=== PATIENT | female | born 1980 | race Caucasian/White ===

== ENCOUNTER → 2018-06-14 | Outpatient (CLI) | payer OTHER ==
--- NOTE | 2018-06-16 14:28 | MM ---
Reason for exam: screening (asymptomatic). Last mammogram was performed 5 years and 1 month ago. History: Patient is nulliparous. Took hormonal contraceptives for 4 years. MG Screening Mammo w CAD Bilateral CC and MLO view(s) were taken. Prior study comparison: May 10, 2013, bilateral digital screening mammo w/CAD. March 09, 2001, bilateral diagnostic mammogram. The breast tissue is heterogeneously dense. This may lower the sensitivity of mammography. No discrete abnormality. No significant changes when compared with prior studies. ASSESSMENT: Negative, BI-RAD 1 RECOMMENDATION: Routine screening mammogram of both breasts in 1 year.
== END ==
LOC: RADMAMWWP 12:26
PROVIDERS: ATTEND Obstetrics & Gynecology
DX: Z12.31 Encounter for screening mammogram for malignant neoplasm of breast (principal)
CPT/HCPCS: 77067

== ENCOUNTER → 2018-06-15 | Outpatient (CLI) | payer OTHER ==
[2018-06-15 11:11] LABS: HCT 45.5 % (34.0-46.0); HGB 14.6 gm/dL (11.4-16.0); MCHC 32.1 g/dL (31.0-37.0); MCV 87.4 fL (80.0-100.0); Platelet Count 317 k/uL (150-450); WBC 8.6 k/uL (3.8-10.6)
[2018-06-15 16:22] LABS: Albumin 4.2 g/dL (3.80-4.90); Calcium 9.4 mg/dL (8.7-10.3); Globulin 2.1 g/dL (1.6-3.3); Potassium 5.1 mmol/L (3.5-5.5); Total Bilirubin 0.5 mg/dL (0.2-1.2); Total Protein 6.3 g/dL (6.2-8.2)
== END | disposition home or self-care (01) ==
LOC: LABWHC1 10:24
PROVIDERS: ATTEND Nurse Practitioner Family
DX: I10 Essential (primary) hypertension (principal); K58.0 Irritable bowel syndrome with diarrhea; Z13.29 Encounter for screening for other suspected endocrine disorder; Z13.0 Encounter for screening for diseases of the blood and blood-forming organs and certain disorders involving the immune mechanism
CPT/HCPCS: 36415; 80053; 80061; 84443; 85027

== ENCOUNTER → 2019-07-12 | Outpatient (CLI) | payer OTHER ==
--- NOTE | 2019-07-12 15:56 | US ---
EXAMINATION TYPE: US kidneys/renal and bladder DATE OF EXAM: 07/12/2019 COMPARISON: 11/15/2012 CLINICAL HISTORY: N28.1 Cyst of kidney,Z79.1 [facility] (current) use of nonste. patient states cyst f rom recent testing at other facility EXAM MEASUREMENTS: Right Kidney: 11.0 x 4.4 x 4.5 cm Left Kidney: 10.2 x 4.3 x 5.4 cm Right Kidney: Mild right hydronephrosis. This appears slightly worse than the prior of 2012. Left Kidney: 1.0cm septated cyst seen Bladder: wnl Bilateral Jets seen: yes No nephrolithiasis is seen. The urinary bladder is anechoic. Bilateral ureteral jets are seen. IMPRESSION: 1. Slight worsening of the mild right hydronephrosis in comparison to the exam of 11/15/2012. 2. New left cortical septated cyst in comparison to 2013. Six-month follow-up ultrasound is recommend ed given the minimal internal complexity.
== END | disposition home or self-care (01) ==
LOC: RADUSWWP 15:15
PROVIDERS: ATTEND Family Medicine
DX: N13.30 Unspecified hydronephrosis (principal); N28.1 Cyst of kidney, acquired; Z79.1 Long term (current) use of non-steroidal anti-inflammatories (NSAID)
CPT/HCPCS: 76770

== ENCOUNTER → 2020-05-05 | Outpatient (CLI) | payer OTHER ==
[2020-05-05 15:35] LABS: Basophils # (A) 0.1 k/uL (0-0.2); Basophils % (A) 1 %; Eosinophils % (A) 0 %; HCT 40.1 % (34.0-46.0); HGB 13.8 gm/dL (11.4-16.0); Lymphocytes % (A) 21 %; MCHC 34.4 g/dL (31.0-37.0); MCV 90.2 fL (80.0-100.0); Mean Platelet Volume 6.8; Monocytes # (A) 0.4 k/uL (0-1.0); Monocytes % (A) 5 %; Neutrophils # (A) 6.9 k/uL (1.3-7.7); Neutrophils % (A) 72 %; Platelet Count 318 k/uL (150-450); RBC 4.45 m/uL (3.80-5.40); RDW 13.6 % (11.5-15.5); WBC 9.5 k/uL (3.8-10.6)
== END | disposition home or self-care (01) ==
LOC: LABWHC1 14:37
PROVIDERS: ATTEND Family Medicine
DX: R07.0 Pain in throat (principal)
CPT/HCPCS: 36415; 85025; 86308

== ENCOUNTER → 2020-06-11 | Outpatient (CLI) | payer OTHER ==
--- NOTE | 2020-06-12 08:08 | US ---
EXAMINATION TYPE: US kidneys/renal and bladder DATE OF EXAM: 06/11/2020 COMPARISON: 07/12/2019 CLINICAL HISTORY: 40-year-old female N28.1 CYST OF KIDNEY. Known left renal cyst, no symptoms TECHNIQUE: Multiple sonographic images of the kidneys and bladder are obtained. FINDINGS: EXAM MEASUREMENTS: Right Kidney: 10.8 x 4.6 x 4.4 cm with mild pelviectasis. No brant calyceal dilatation to suggest fr ank hydronephrosis. Left Kidney: 10.1 x 4.4 x 5.3 cm without hydronephrosis. There is a septated lower pole cortical cyst measuring 1.4 cm. Previously, this measured 1.0 cm. Bladder: wnl IMPRESSION: 1. Mild right-sided pelviectasis. The overall mild hydronephrosis seen on 07/12/2019 shows improvement . 2. Septated lower pole cortical cyst on the left currently measures 1.4 cm versus 1.0 cm on 07/12/2019 . Given the indolent behavior, recommend continued annual surveillance.
== END | disposition home or self-care (01) ==
LOC: RADUSWWP 15:46
PROVIDERS: ATTEND Family Medicine
DX: N28.1 Cyst of kidney, acquired (principal); N13.30 Unspecified hydronephrosis
CPT/HCPCS: 76770

== ENCOUNTER → 2020-07-16 | Outpatient (CLI) | payer OTHER ==
--- NOTE | 2020-07-20 08:59 | MM ---
Reason for exam: screening (asymptomatic). Last mammogram was performed 2 years and 1 month ago. History: Took hormonal contraceptives for 4 years. Physical Findings: A clinical breast exam by your physician is recommended on an annual basis and results should be correlated with mammographic findings. MG 3D Screening Mammo W/Cad Bilateral CC and MLO view(s) were taken. Prior study comparison: June 14, 2018, bilateral MG screening mammo w CAD. May 10, 2013, bilateral digital screening mammo w/CAD. The breast tissue is heterogeneously dense. This may lower the sensitivity of mammography. No significant changes when compared with prior studies. ASSESSMENT: Benign, BI-RAD 2 RECOMMENDATION: Routine screening mammogram of both breasts in 1 year.
== END | disposition home or self-care (01) ==
LOC: RADMAMWWP 14:38
PROVIDERS: ATTEND Obstetrics & Gynecology
DX: Z12.31 Encounter for screening mammogram for malignant neoplasm of breast (principal)
CPT/HCPCS: 77063; 77067

== ENCOUNTER → 2022-02-16 | Outpatient (CLI) | payer BC ==
--- NOTE | 2022-02-17 09:07 | MM ---
Reason for Exam: Screening (asymptomatic). Last mammogram was performed 1 year(s) and 7 month(s) ago. Patient History: Menarche at age 14. First Full-Term at age 21. Patient used Hormonal Contraceptives for 4 years. Last menstrual period: Risk Values: Maggie 5 year model risk: 0.6%. NCI Lifetime model risk: 8.0%. Prior Study Comparison: 05/10/2013 Bilateral Screening Mammogram, [facility]. 06/14/2018 Bilateral Screening Mammogram, [facility]. 07/16/2020 Bilateral Screening Mammogram, [facility]. Tissue Density: The breast tissue is heterogeneously dense. This may lower the sensitivity of mammography. Findings: Analyzed By CAD. There is no suspicious group of microcalcifications or new suspicious mass in either breast. Overall Assessment: Negative, BI-RAD 1 Management: Screening Mammogram of both breasts in 1 year. A clinical breast exam by your physician is recommended on an annual basis and results should be correlated with mammographic findings. [facility] will attempt to contact patient to return for supplemental views and ultrasound if indicated. Electronically signed and approved by: Jeremy Riggs DO
== END | disposition home or self-care (01) ==
LOC: RADMAMWWP 16:04
PROVIDERS: ATTEND Obstetrics & Gynecology
DX: Z12.31 Encounter for screening mammogram for malignant neoplasm of breast (principal)
CPT/HCPCS: 77063; 77067

== ENCOUNTER → 2022-03-01 | Outpatient (CLI) | payer BC ==
[2022-03-02 01:36] LABS: Basophils # (A) 0.07 X 10*3/uL (0.00-0.10); Basophils % (A) 0.6 %; Eosinophils # (A) 0.07 X 10*3/uL (0.04-0.35); Eosinophils % (A) 0.6 %; HCT 43.3 % (37.2-46.3); HGB 13.7 g/dL (12.0-15.0); Immature Grans, Automated 0.4 %; Lymphocytes # (A) 2.57 X 10*3/uL (0.90-5.00); Lymphocytes % (A) 21.7 %; MCH 28.8 pg (27.0-32.0); MCHC 31.6 g/dL (32.0-37.0); MCV 91.2 fL (80.0-97.0); Mean Platelet Volume 10.2 fL (9.5-12.2); Monocytes # (A) 0.72 X 10*3/uL (0.20-1.00); Monocytes % (A) 6.1 %; NRBC Per 100 WBC 0 /100 WBCS (0.0-0.0); Neutrophils # (A) 8.36 X 10*3/uL (1.80-7.70); Neutrophils % (A) 70.6 %; Platelet Count 283 X 10*3/uL (140-440); RBC 4.75 X 10*6/uL (4.10-5.20); RDW 13.1 % (11.5-14.5); WBC 11.84 X 10*3/uL (4.50-10.00)
[2022-03-02 02:07] LABS: ALT 10 U/L (8-44); AST 14 U/L (13-35); African American GFR (CKD) 122.2 (60.0-200.0); Albumin 4.3 g/dL (3.8-4.9); Albumin/Globulin Ratio 2.16 (1.60-3.17); Alkaline Phosphatase 75 U/L (41-126); BUN/Creat Ratio 13.87 Ratio (12.00-20.00); Blood Urea Nitrogen 9.7 mg/dL (9.0-27.0); C Reactive Protein <0.30 mg/dL (0.00-0.80); Calcium 8.9 mg/dL (8.7-10.3); Carbon Dioxide 29.8 mmol/L (20.0-27.5); Chloride 103 mmol/L (96-109); Glucose 121 mg/dL (70-110); Non-African American GFR(CKD) 105.5 (60.0-200.0); Potassium 3.9 mmol/L (3.5-5.5); Sodium 140 mmol/L (135-145); Total Bilirubin <0.15 mg/dL (0.30-1.20); Total Protein 6.3 g/dL (6.2-8.2)
== END | disposition home or self-care (01) ==
LOC: LABWHC1 14:56
PROVIDERS: ATTEND Internal Medicine Gastroenterology
DX: R19.7 Diarrhea, unspecified (principal)
CPT/HCPCS: 36415; 80053; 82784; 83516; 84439; 84443; 85025; 86140

== ENCOUNTER → 2022-03-08 | Outpatient (CLI) | payer BC ==
--- NOTE | 2022-03-08 14:03 | US ---
EXAMINATION TYPE: US pelvic complete DATE OF EXAM: 03/08/2022 COMPARISON: Pelvic ultrasound 11/14/2012 CLINICAL HISTORY: PELVIC MASS R19.09. Patient states during internal pelvic exam, doctor felt a right mass, ovarian cyst vs fibroid. History ablation. TECHNIQUE: Transabdominal (TA). Transabdominal sonographic images of the pelvis were acquired. Date of LMP: Unknown, EXAM MEASUREMENTS: Uterus: 9.3 x 5.6 x 3.1 cm Endometrial Stripe: 0.4 cm Right Ovary: 3.4 x 1.8 x 1.3 cm Left Ovary: 3.5 x 2.2 x 2.0 cm Grayscale and color Doppler imaging performed of the ovaries, there is color flow bilaterally, associ ated follicles 1. Uterus: Anteverted Left hypoechoic lesion = 2.3 x 2.5 x 2.4 cm 2. Endometrium: limited visualization due to ablation 3. Right Ovary: follicles seen 4. Left Ovary: follicles seen 5. Bilateral Adnexa: wnl 6. Posterior cul-de-sac: no free fluid Cervix- nabothian cyst IMPRESSION: Probable fibroid uterus
== END | disposition home or self-care (01) ==
LOC: RADUSWWP 12:46
PROVIDERS: ATTEND Obstetrics & Gynecology
DX: R19.09 Other intra-abdominal and pelvic swelling, mass and lump (principal); R68.89 Other general symptoms and signs
CPT/HCPCS: 76856

== ENCOUNTER → 2022-06-27 | Outpatient (CLI) | payer BC ==
[2022-06-28 00:28] LABS: Follicle Stimulating Hormone 3.7 mIU/mL; Luteinizing Hormone 9.2 mIU/mL
== END | disposition home or self-care (01) ==
LOC: LABWHC1 14:45
PROVIDERS: ATTEND Obstetrics & Gynecology
DX: N95.1 Menopausal and female climacteric states (principal)
CPT/HCPCS: 36415; 82670; 83001; 83002

== ENCOUNTER → 2023-07-11 | Outpatient (CLI) | payer BC ==
--- NOTE | 2023-07-11 08:30 | MM ---
Reason for Exam: Clinical finding. Last screening mammogram was performed 5 month(s) ago. Indicated Problems: Lump or thickening of the left side for 1 Week(s). Patient History: Menarche at age 14. First Full-Term at age 21. Patient has history of breast feeding. Patient used Hormonal Contraceptives for 4 years. Risk Values: Maggie 5 year model risk: 0.7%. NCI Lifetime model risk: 7.9%. Prior Study Comparison: 07/16/2020 Bilateral Screening Mammogram, [facility]. 02/16/2022 Bilateral MG 3D screening mammo w/cad, [facility]. 02/22/2023 Bilateral MG 3D screening mammo w/cad, [facility]. Tissue Density: Left: The breast tissue is heterogeneously dense. This may lower the sensitivity of mammography. Findings: Analyzed By CAD. Focal density inner central left breast at a posterior depth appears more defined and incompletely disperses on 3-D images. Palpable marker along the upper outer quadrant. On the MLO view, possible obscured underlying nodularity. However, no persisting abnormality is identified on the CC view or true lateral view. Further ultrasound evaluation is recommended. Overall Assessment: Incomplete: need additional imaging evaluation, BI-RAD 0 Management: Diagnostic Breast Ultrasound of the left breast. Superior half. Electronically signed and approved by: Peterson Vargas M.D. Radiologist
--- NOTE | 2023-07-11 09:29 | USB ---
Reason for Exam: Clinical finding. Patient History: Menarche at age 14. First Full-Term at age 21. Patient has history of breast feeding. Patient used Hormonal Contraceptives for 4 years. Risk Values: Maggie 5 year model risk: 0.7%. NCI Lifetime model risk: 7.9%. Technique: Method: Targeted. Prior Study Comparison: 07/16/2020 Bilateral Screening Mammogram, [facility]. 02/16/2022 Bilateral MG 3D screening mammo w/cad, [facility]. 02/22/2023 Bilateral MG 3D screening mammo w/cad, [facility]. Findings: The upper section of the breast of the left breast, the area of palpable concern of the left breast, the axilla of the left breast and the retroareolar of the left breast were scanned. Targeted ultrasound superior half of the left breast 9:00 to 3:00 including scanning of the subareolar region and axilla. At the 9:00 position, 3 cm from the nipple, there is a probable cyst cluster measuring 6 x 5 x 5 mm. Six-month follow-up recommended. At the 10:00 position, 1 cm from the nipple, there is a small 5 x 4 mm somewhat lobulated lesion too small to accurately characterize, possible collapsing cyst. Six-month follow-up recommended. At the 1:00 position, 8 cm from the nipple, probable cyst cluster measuring 1.4 x 1.2 x 0.5 cm. Just adjacent at the 2:00 position, 8 cm from the nipple, corresponding to the palpable site, suspected cyst cluster measuring 1.0 x 0.7 x 0.6 cm for which six-month follow-up is recommended. At the 11:00 position posteriorly, a dense island of fibroglandular tissue, likely mammographic correlate. No other solid or cystic lesion or axillary lymphadenopathy. Overall Assessment: Probably benign, BI-RAD 3 Management: Diagnostic Mammogram of the left breast in 6 months. Diagnostic Breast Ultrasound of the left breast in 6 months. A clinical breast exam by your physician is recommended on an annual basis and results should be correlated with mammographic findings. This exam should not preclude additional follow-up of suspicious palpable abnormalities. Results were given to the patient verbally at the time of exam. Electronically signed and approved by: Peterson Vargas M.D. Radiologist
== END | disposition home or self-care (01) ==
LOC: RADMAMWWP 07:58
PROVIDERS: ATTEND Obstetrics & Gynecology
DX: N64.4 Mastodynia (principal); N63.0 Unspecified lump in unspecified breast; Z92.0 Personal history of contraception
CPT/HCPCS: 77061; 77065

== ENCOUNTER → 2023-07-27 | Outpatient (CLI) | payer BC ==
[2023-07-27 14:25] VITALS: BP 147/97; PULSE 95; RESP 15; TEMP 98.1
--- NOTE | 2023-07-27 14:28 | P.GSHP ---
History of Present Illness H&P Date: 07/27/23 Chief Complaint: Abnormal left breast mammogram Daphne is a 43-year-old female who had a bilateral mammogram performed on 02-22-2023. This was BI-RADS 2. She is seen in [facility] for Dr. Archer. She subsequently developed a lump in the left breast and a repeat left breast mammogram and ultrasound was performed on 07-11-2023. This was considered BI- RADS 3 she was noted to have: 9 o'clock position: Probable cyst 10 o'clock position: 5 x 4 mm somewhat lobulated lesion too small to characterize 6-month follow-up recommended 1 o'clock position palpable cystic cluster Adjacent to the 2 o'clock position corresponding to the palpable site suspected cystic cluster 1 x 0.7 cm for which 6-month follow-up was recommended The 11 o'clock position posteriorly dense island of fibroglandular tissue likely mammographic correlate The patient states that the area of nodularity which she noted has resolved. She can barely feel anything at that site at this time. The impression was BI-RADS 3 repeat ultrasound in 6 months He is not complaining of any other lumps masses or nodules of concern. She has never had any surgery on her breast. She is not complaining of any recent trauma or infection in the breast. She is not complaining of any nipple discharge or skin changes. She has not had a period since 2010, as she had an ablation at that time. She has not noticed any cyclical changes in her breast. She had not eaten anything unusual. Caffeine: 1 cup/day nicotine: none chocolate: occasional BCP: stopped 2010 hormones: none Family History: maternal grandfather: pancreatic cancer Hormonal History: menarche: 13 , breast fed: yes, age at first : 21 ablation: 30 no periods since than; she does not know her menopausal status Surgical history: cholecystectomy Exploratory lap Uterine ablation Medical history: none Social History: nicotine: none alcohol: occasional drugs: none - Constitutional Constitutional: Denies chills, Denies fever - EENT Eyes: denies blurred vision, denies pain Ears: deny: decreased hearing, tinnitus Ears, nose, mouth and throat: Denies headache, Denies sore throat - Breasts Breasts: bilateral: as per HPI - Cardiovascular Cardiovascular: Denies chest pain, Denies shortness of breath - Respiratory Respiratory: Denies cough, Denies 7 - Gastrointestinal Gastrointestinal: Denies abdominal pain, Denies diarrhea, Denies nausea, Denies vomiting - Genitourinary (Female) Genitourinary: Denies dysuria, Denies hematuria - Menstruation Menstruation: Reports as per HPI - Musculoskeletal Musculoskeletal: Denies myalgias - Integumentary Integumentary: Denies pruritus, Denies rash - Neurological Neurological: Denies numbness, Denies weakness - Psychiatric Psychiatric: Denies anxiety, Denies depression - Endocrine Endocrine: Denies fatigue, Denies weight change - Hematologic/Lymphatic Comment: none - Allergic/Immunologic Allergic/Immunologic: Reports as per HPI Past Medical History Additional Past Medical History / Comment(s): MIGRAINES History of Any Multi-Drug Resistant Organisms: None Reported Past Surgical History: Cholecystectomy Past Psychological History: No Psychological Hx Reported Past Alcohol Use History: Occasional Past Drug Use History: None Reported Medications and Allergies Home Medications Medication Instructions Recorded Confirmed Type SUMAtriptan succinate [Imitrex] 25 mg PO ONCE #10 tablet 10/09/14 07/27/23 Rx Allergies Allergy/AdvReac Type Severity Reaction Status Date / Time Penicillins Allergy Unknown Verified 07/27/23 14:10 Sulfa (Sulfonamide Allergy Unknown Verified 07/27/23 14:10 Antibiotics) Surgical - Exam - General no distress - Eyes normal ocular movement - ENT no hearing loss - Neck trachea midline - Respiratory normal respiratory effort, clear to auscultation - Cardiovascular Heart Sounds: normal: S1, S2 - Abdomen Abdomen: soft, non tender, no guarding, no rigid, no rebound - Integumentary normal turgor - Neurologic no disoriented, no combative - Musculoskeletal normal gait - Psychiatric oriented to time, oriented to person, oriented to place, speech is normal, memory intact Breast Exam: BRA: 38B Inspection: Bilateral grade 2 ptosis Palpation: Right breast: Multi positional exam no dominant masses or nodules of concern Right axilla: No adenopathy of concern Left breast: Multi positional exam no dominant masses or nodules of concern, particular attention to the area where the patient felt the palpable abnormality no longer has a palpable abnormality, the patient herself cannot feel anything of concern Left axilla: No adenopathy of concern Results mammogram and ultrasound results reviewed Assessment and Plan Assessment: Impression: Fibrocystic breast changes Plan: Bilateral mammogram in January, left breast ultrasound in January Patient to follow-up after mammogram and ultrasound Patient to follow-up sooner any questions or concerns CC: DR. Archer
== END ==
LOC: WWCWWP 13:52
PROVIDERS: ATTEND Surgery
DX: N60.11 Diffuse cystic mastopathy of right breast (principal); N60.12 Diffuse cystic mastopathy of left breast; G43.909 Migraine, unspecified, not intractable, without status migrainosus; Z88.0 Allergy status to penicillin; Z88.2 Allergy status to sulfonamides

== ENCOUNTER → 2024-02-26 | Outpatient (CLI) | payer BC ==
--- NOTE | 2024-02-26 11:51 | USB ---
Reason for Exam: Follow-up at short interval from prior study. Patient History: Menarche at age 14. First Full-Term at age 21. Perimenopausal. Patient has history of breast feeding. Patient used Hormonal Contraceptives for 4 years. Risk Values: Maggie 5 year model risk: 0.7%. NCI Lifetime model risk: 7.8%. Technique: Method: Targeted. Prior Study Comparison: 02/16/2022 Bilateral MG 3D screening mammo w/cad, [facility]. 02/22/2023 Bilateral MG 3D screening mammo w/cad, [facility]. 07/11/2023 Left MG 3D diag mammo w/cad , [facility]. Findings: The upper outer quadrant of the right breast, the upper section of the breast of the left breast, the axilla of both breasts and the retroareolar of both breasts were scanned. At the right 11:00 position there is an area of decreased echogenicity which was also imaged at real-time by the undersigned and is likely reflective of normal breast parenchyma. Precautionary six-month follow-up is advised. At the right 9:00 position there is a cluster of cysts measuring 1. 0.5 cm respectively. Evaluation of the left breast demonstrates a cluster of cysts at the 3:00 position 1 cm from the nipple. Previously noted cluster at the left 2:00 position 8 cm from the nipple appears to have resolved. Overall Assessment: Probably benign, BI-RAD 3 Management: Diagnostic Breast Ultrasound of the right breast in 6 months. A clinical breast exam by your physician is recommended on an annual basis and results should be correlated with mammographic findings. This exam should not preclude additional follow-up of suspicious palpable abnormalities. Results were given to the patient verbally at the time of exam. [facility], , 02/26/2024 11:21 AM. Electronically signed and approved by: Franklin Pedraza M.D. Radiologis
--- NOTE | 2024-02-27 08:17 | MM ---
Reason for Exam: Follow-up at short interval from prior study. Last screening mammogram was performed 12 month(s) ago. Patient History: Menarche at age 14. First Full-Term at age 21. Perimenopausal. Patient has history of breast feeding. Patient used Hormonal Contraceptives for 4 years. Risk Values: Maggie 5 year model risk: 0.7%. NCI Lifetime model risk: 7.8%. Prior Study Comparison: 05/10/2013 Bilateral Screening Mammogram, [facility]. 06/14/2018 Bilateral Screening Mammogram, [facility]. 07/16/2020 Bilateral Screening Mammogram, [facility]. 02/16/2022 Bilateral MG 3D screening mammo w/cad, [facility]. 02/22/2023 Bilateral MG 3D screening mammo w/cad, [facility]. 07/11/2023 Left MG 3D diag mammo w/cad LT, [facility]. Tissue Density: The breasts are heterogeneously dense, which may obscure small masses. Findings: Analyzed By CAD. Area of distortion upper outer right breast is improved upon spot compression imaging however ultrasound is recommended. Ultrasound recommended for area of nodularity at the left 3:00 position. Ultrasound recommended. No suspicious microcalcifications seen. Overall Assessment: Incomplete: need additional imaging evaluation, BI-RAD 0 Management: Diagnostic Breast Ultrasound of both breasts. . Results were given to the patient verbally at the time of exam. Patient should continue monthly self-breast exams. A clinical breast exam by your physician is recommended on an annual basis. This exam should not preclude additional follow-up of suspicious palpable abnormalities. Note on Maggie scores and lifetime risk: 1. A Maggie score greater than 3% is considered moderate risk. If this is the case, consider specialist referral to assess eligibility for a risk reducing agent. 2. If overall lifetime risk for the development of breast cancer is 20% or higher, the patient may qualify for future screening with alternating mammogram and breast MRI. [facility], , 02/27/2024 8:14 AM. Electronically signed and approved by: Franklin Pedraza M.D. Radiologis
== END | disposition home or self-care (01) ==
LOC: RADMAMWWP 09:52
PROVIDERS: ATTEND Surgery
CPT/HCPCS: 77062; 77066

== ENCOUNTER → 2024-02-29 | Outpatient (CLI) | payer BC ==
[2024-02-29 09:05] VITALS: BP 138/87; PULSE 94; RESP 16; TEMP 97.9
--- NOTE | 2024-02-29 09:56 | P.PN ---
Subjective Progress Note Date: 02/29/24 Principal diagnosis: Extremely dense breast bilateral, abnormal right breast ultrasound, cystic breast changes 02-29-24 The patient is a 44-year-old female followed for her cystic breast changes. She underwent a bilateral mammogram on 02-26-2024. This revealed heterogeneously de nse breast and was personally reviewed and interpreted. The mammogram led to a recommendation for ultrasound of both breast. Bilateral breast ultrasound was performed on the same date. The ultrasound findings revealed in the upper outer quadrant of the right breast in the upper section of the left breast in the axilla of both breast in the retroareolar regions of both breast being scanned. On the right at the 11 o'clock position there was an area of decreased echogenicity which was also imaged at a and felt to be reflective of normal breast parenchyma. Precautionary 6-month follow-up was recommended. In the right at 9:00 there were a cluster of cysts. Evaluation of the left breast demonstrated a cluster of cyst at the 3 o'clock position 1 cm from the nipple. Previously noted cluster on the left at 2:00 had resolved. The assessment was probably benign BI-RADS 3, diagnostic breast ultrasound of the right breast in 6 months was recommended. The ultrasound was personally reviewed. She had a uterine ablation in 2010 and has not had a period since, but she is not believed to be menopausal, this may relate to why her breast re so dense She is not complaining of any other lumps masses or nodules of concern. She has never had any surgery on her breast. She is not complaining of any recent trauma or infection in the breast. She is not complaining of any nipple discharge or skin changes. She has not had a period since 2010, as she had an ablation at that time. She has not noticed any cyclical changes in her breast. She had not eaten anything unusual. Some increased nodularity in the left breast several years ago but this has resolved and did correspond with some cystic changes on an ultrasound. She states secondary to the fact that her breast are so dense she feels that they are laterally nodular however no discrete new nodules are appreciated. She has not had any surgery or infection of the breast. Complaining of any nipple discharge or skin changes. Caffeine: 1 cup/day nicotine: none chocolate: occasional BCP: stopped 2010 hormones: none Family History: maternal grandfather: pancreatic cancer mother: nonhodgkins lymphoma Hormonal History: menarche: 13 , breast fed: yes, age at first : 21 ablation: 30 no periods since than; she does not know her menopausal status Surgical history: cholecystectomy Exploratory lap Uterine ablation Medical history: none Social History: nicotine: none alcohol: occasional drugs: none - Constitutional Constitutional: Denies chills, Denies fever - EENT Eyes: denies blurred vision, denies pain Ears: deny: decreased hearing, tinnitus Ears, nose, mouth and throat: Denies headache, Denies sore throat - Breasts Breasts: bilateral: as per HPI - Cardiovascular Cardiovascular: Denies chest pain, Denies shortness of breath - Respiratory Respiratory: Denies cough - Gastrointestinal Gastrointestinal: Denies abdominal pain, Denies diarrhea, Denies nausea, Denies vomiting - Genitourinary (Female) Genitourinary: Denies dysuria, Denies hematuria - Menstruation Menstruation: Reports as per HPI - Musculoskeletal Musculoskeletal: Denies myalgias - Integumentary Integumentary: Denies pruritus, Denies rash - Neurological Neurological: Denies numbness, Denies weakness - Psychiatric Psychiatric: Denies anxiety, Denies depression - Endocrine Endocrine: Denies fatigue, Denies weight change - Hematologic/Lymphatic Comment: none - Allergic/Immunologic Allergic/Immunologic: Reports as per HPI Past Medical History Additional Past Medical History / Comment(s): MIGRAINES History of Any Multi-Drug Resistant Organisms: None Reported Past Surgical History: Cholecystectomy Past Psychological History: No Psychological Hx Reported Past Alcohol Use History: Occasional Past Drug Use History: None Reported Medications and Allergies Home Medications Medication Instructions Recorded Confirmed Type SUMAtriptan succinate [Imitrex] 25 mg PO ONCE #10 tablet 10/09/14 07/27/23 Rx Allergies Allergy/AdvReac Type Severity Reaction Status Date / Time Penicillins Allergy Unknown Verified 07/27/23 14:10 Sulfa (Sulfonamide Allergy Unknown Verified 07/27/23 14:10 Antibiotics) Objective - Vital Signs Vital signs: Vital Signs Temp 97.9 F 02/29/24 09:02 Pulse 94 02/29/24 09:02 Resp 16 02/29/24 09:02 BP 138/87 02/29/24 09:02 Pulse Ox 99 02/29/24 09:02 FiO2 Intake & Output 02/28/24 02/29/24 02/29/24 18:59 06:59 18:59 Weight 52.163 kg - Constitutional General appearance: Present: cooperative - EENT Eyes: Present: EOMI ENT: Present: hearing grossly normal - Neck Neck: Present: normal ROM - Respiratory Respiratory: bilateral: CTA - Cardiovascular Rhythm: regular Heart sounds: normal: S1, S2 - Integumentary Integumentary: Present: normal turgor - Musculoskeletal Musculoskeletal: Present: gait normal - Psychiatric Psychiatric: Present: A&O x's 3, appropriate affect, intact judgment & insight - Additional findings Additional findings: Breast Exam: BRA: 38B Inspection: Bilateral grade 2 ptosis Palpation: Right breast: Multi positional exam no dominant masses or nodules of concern, very dense breast Right axilla: No adenopathy of concern Left breast: Multi positional exam no dominant masses or nodules of concern, particular attention to the area where the patient felt the palpable abnormality no longer has a palpable abnormality, the patient herself cannot feel anything of concern, very dense breast Left axilla: No adenopathy of concern Assessment and Plan Assessment: Impression: Fibrocystic breast changes abnormal right breast shayne BIR 3; 02-26-24 Plan: right breast ultrasound in 6 months with appointment at that time bilateral mammogram in 1 year She will follow-up sooner if she has any questions or concerns We have discussed lifestyle modifications such as stopping caffeine which may decrease the density of the breast additionally primrose oil may decrease the density of the breast she will consider these CC: Dr. Easton
== END ==
LOC: WWCWWP 08:47
PROVIDERS: ATTEND Surgery
DX: R92.8 Other abnormal and inconclusive findings on diagnostic imaging of breast (principal); N60.11 Diffuse cystic mastopathy of right breast; N60.12 Diffuse cystic mastopathy of left breast; Z88.2 Allergy status to sulfonamides; Z88.0 Allergy status to penicillin

== ENCOUNTER → 2024-09-10 | Outpatient (CLI) | payer BC ==
[2024-09-10 10:41] VITALS: BP 151/97; PULSE 90; RESP 16; TEMP 98.7
--- NOTE | 2024-09-10 13:23 | P.HPOB ---
History of Present Illness H&P Date: 09/10/24 Chief Complaint: The patient is here for her routine gynecologic exam and ma mmogram. This is a 44-year-old G3, P3 with an LMP of 2010. Patient is here to establish with this office. She previously saw Dr. Archer for her gynecologic care and was last seen in 2022. She states she had some type of cervical procedure in 2000 and thinks it was a LEEP procedure or cryotherapy of the cervix. Following that, her Pap smears were normal until 2021 when she had a negative Pap smear with a positive high-risk HPV test (-16, -18). She had a follow-up Pap smear in 2022 which was negative and high-risk HPV testing was also negative. She has been amenorrheic since her endometrial ablation in 2010. She thinks she may be starting into a menopausal change because of occasional mood changes and difficulty sleeping. She denies any significant hot flashes. She denies any vaginal bleeding. Review of Systems The patient's weight has been stable over the last year. She denies respiratory, cardiac, or G.I. problems. Past Medical History Past Medical History: Hypertension Additional Past Medical History / Comment(s): MIGRAINES. 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 LEEP or cryotherapy as of the cervix for cervical dysplasia in 2000. History of Any Multi-Drug Resistant Organisms: None Reported Past Surgical History: Cholecystectomy, Uterine Ablation Additional Past Surgical History / Comment(s): Endometrial ablation in 2010. Colonoscopy 2022(next after 5yr). Cystoscopy. LEEP or cryotherapy of the cervix in 2000. Past Anesthesia/Blood Transfusion Reactions: No Reported Reaction Past Psychological History: No Psychological Hx Reported Smoking Status: Never smoker Past Alcohol Use History: Occasional Past Drug Use History: None Reported Additional History: She is and this is her second marriage. 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 - Past Family History Mother Family Medical History: Cancer, Hypertension Additional Family Medical History / Comment(s): Non-Hodgkin's lymphoma. A maternal grandfather had pancreatic cancer. Father Family Medical History: Coronary Artery Disease (CAD), Myocardial Infarction (MA) Medications and Allergies Home Medications Medication Instructions Recorded Confirmed Type lisinopriL [Zestril] 5 mg PO DAILY 09/10/24 09/10/24 History Allergies Allergy/AdvReac Type Severity Reaction Status Date / Time Penicillins Allergy Unknown Verified 09/10/24 10:32 Sulfa (Sulfonamide Allergy Unknown Verified 09/10/24 10:32 Antibiotics) Exam Vital Signs Temp Pulse Resp BP Pulse Ox 09/10/24 10:34 98.7 F 90 16 151/97 96 Intake and Output 09/09/24 09/10/24 09/10/24 22:59 06:59 14:59 Other: Weight 55.338 kg Height 5 feet 4 inches, weight 122 pounds, BMI 20.9. This is a well-developed well-nourished white female who is alert and oriented times 3 in no acute distress. HEENT: Within normal limits. NECK: Supple without mass or thyromegaly. CHEST AND LUNGS: Clear to auscultation. HEART: Regular rate and rhythm. BREASTS: Are without mass or discharge. AXILLARY EXAM: Negative for adenopathy. BACK: Negative for CVA tenderness. ABDOMEN: Soft, nontender, without palpable masses. PELVIC EXAM: Normal external genitalia. Cervix and vagina appear normal. There is no unusual discharge. There is no evidence of prolapse. The uterus is midposition, nongravid size with a slight irregularity consistent with a uterine fibroid measuring approximately 2.5 cm in the left lower uterine segment. This is nontender. There are no palpable adnexal masses or tenderness. RECTAL EXAM: negative for mass or tenderness and is negative for occult blood. EXTREMITIES: Nontender. Previous pelvic ultrasound done on 03/08/2022 showed a 2.5 cm left uterine fibroid. IMPRESSION: 1. 44-year-old perimenopausal female has been amenorrheic since her endometrial ablation in 2010, with small uterine fibroid which is asymptomatic. 2. Asymptomatic left uterine fibroid measuring approximately 2.5 cm. 3. History of fibrocystic changes of the breast. 4. Previous Pap smear cotest in 2021 showing positive high-risk HPV testing (- 16, -18) with normal Pap smear, per the patient. Follow-up Pap smear cotest was negative in 2022, per the patient. PLAN: 1. Pap smear cotest was performed. 2. Self breast awareness was discussed with the patient. We have also discussed symptoms associated with inflammatory breast cancer. 3. Previous bilateral diagnostic mammogram in January 2024 did require bilateral breast ultrasounds as a workup. This was felt to be probably benign. A right breast ultrasound was recommended after 6 months because of a cluster of breast cysts. The order slip for the 6-month breast ultrasound was given to the patient as well as a bilateral screening mammogram order slip for January 2025. 4. Osteoporosis prevention was discussed. I have stressed the importance of adequate calcium, vitamin D and regular exercise. Recommended amounts of calcium and vitamin D were also discussed. 5. We have discussed her elevated blood pressure. She states she has recently restarted her blood pressure medication. I have recommended that she check her own blood pressure on a regular basis and follow-up with her PCP for blood pressure elevations. 6. She was advised to return in one year for her annual well woman exam.
== END ==
LOC: WWCWWP 09:47
PROVIDERS: ATTEND Obstetrics & Gynecology
DX: Z12.31 Encounter for screening mammogram for malignant neoplasm of breast (principal); Z01.419 Encounter for gynecological examination (general) (routine) without abnormal findings; D25.9 Leiomyoma of uterus, unspecified; Z88.0 Allergy status to penicillin; Z88.2 Allergy status to sulfonamides; Z86.018 Personal history of other benign neoplasm; Z78.0 Asymptomatic menopausal state